=== PATIENT | male | born 1985 | race Caucasian/White ===

== ENCOUNTER 2016-08-23 02:11 | Emergency (ER) | payer BC ==
[~2016-08-23] VITALS: Ht 175.3 cm; Wt 95.0 kg
[2016-08-23 02:25] VITALS: BP 131/96
[2016-08-23] MEDS ORDERED: VITA200016 PO (02:29)
[2016-08-23] MEDS ORDERED: PRAV40TA2 PO (02:29)
== END 2016-08-23 04:28 | disposition left against medical advice (07) ==
LOC: M ED 02:11
DX: R06.02 Shortness of breath (principal); Z53.21 Procedure and treatment not carried out due to patient leaving prior to being seen by health care provider

== ENCOUNTER → 2017-12-20 | Outpatient (CLI) | payer BC | LOC: M OUTALCOH 10:13 | DX: Z13.89 Encounter for screening for other disorder (principal) ==

== ENCOUNTER 2017-12-27 11:00 | Outpatient (RCR) | payer BC | END 2018-01-19 | LOC: M OUTALCOH 11:00 | DX: Z03.89 Encounter for observation for other suspected diseases and conditions ruled out (principal) ==

== ENCOUNTER → 2019-05-29 | Outpatient (CLI) | payer OTHER, BC ==
[~2019-05-29] MED LIST: PRAV40TA2 PO; VITA200016 PO
--- NOTE | 2019-05-30 15:19 | SLEEPHOME ---
DATE OF PROCEDURE: 05/29/2019 ORDERED BY: BRIGIDO Rodriguez Diagnostic home sleep testing was performed due to concern for the obstructive sleep apnea syndrome. For testing a nocturnal T3 respiratory monitoring device was used. Continuous record was made of pulse, oxygen saturation, airflow, chest and abdominal strain, and body position. 9 hours and 59 minutes of data were reviewed. There were 5 hours and 11 minutes marked as time in bed. During the interval marked time in bed, there were 81 respiratory events identified of 10 seconds in duration or greater for a respiratory event index of 15.6. The events were primarily obstructive. Baseline pulse rate 68. Pulse rate ranged 48-107. Baseline saturation 93%. Saturations fell to 88%. Testing was performed in both supine and nonsupine positions. IMPRESSION: Abnormal home sleep testing with repetitive respiratory events and oxygen desaturations to 88% with a respiratory event index of 15.6 is consistent with the obstructive sleep apnea syndrome. RECOMMENDATIONS: The patient should be encouraged to undergo formal sleep evaluation.
== END ==
LOC: M SLEEP HO 11:04
PROVIDERS: ATTEND Nurse Practitioner Family
DX: R40.0 Somnolence (principal)

== ENCOUNTER → 2019-07-15 | Outpatient (CLI) | payer OTHER, BC ==
--- NOTE | 2019-07-24 10:57 | SLEEPCENT ---
DATE OF STUDY: 07/15/2019 ORDERING PROVIDER: BRIGIDO Rodriguez Nocturnal polysomnography was performed for the titration of pressure therapy in this patient with a clinical diagnosis of obstructive sleep apnea syndrome confirmed by home testing revealing a respiratory event index of 15.6. For testing, a ResMed P30 nasal pillow of large size was used. 4 cm of water pressure were applied to the circuit, and the lights were extinguished. 6 hours and 24 minutes of data were reviewed. There were 337.5 minutes of sleep identified. Sleep latency was normal at 6 minutes. Rapid eye movement (REM) sleep was slightly delayed at 102 minutes. Sleep architecture was good. There were three REM cycles. Overall sleep efficiency is 89.3%. The patient's electrocardiogram showed a sinus rhythm with premature ventricular contractions (PVCs). Average heart rate was 65 beats per minute. Electroencephalogram (EEG) showed normal waveforms for awake and sleep. Respiratory events were fully palliated with continuous positive airway pressure (CPAP) at a pressure of +5, and remaining measures of sleep physiology were normal. IMPRESSION: Obstructive sleep apnea syndrome (G47.33). RECOMMENDATION: Nightly use of pressure therapy, 5 cm of water.
== END ==
LOC: M SLEEP 20:00
PROVIDERS: ATTEND Nurse Practitioner Family
DX: G47.33 Obstructive sleep apnea (adult) (pediatric) (principal)